=== PATIENT | female | born 1955 | race Caucasian/White ===

== ENCOUNTER 2016-07-29 16:45 | Emergency (ER) | payer OTHER ==
[2016-07-29] MEDS ORDERED: Cyclobenzaprine 10 MG Tab PO ONE (17:35)
[2016-07-29] MEDS ORDERED: Sodium Chloride 0.9% 10 ML Syringe FLUSH PRN (17:35)
[2016-07-29] MEDS ORDERED: HYDROmorphone 0.5 MG/0.5 ML Syringe IVPUSH ONE (17:35)
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
[2016-07-29] MEDS ORDERED: Sodium Chloride 0.9% 1,000 ML IV SCH (17:45)
[2016-07-29] MEDS ORDERED: Sodium Chloride 0.9% 10 ML Syringe FLUSH ONE (18:07)
[2016-07-29] MEDS ORDERED: Iopamidol 612 MG/ML 100 ML Bottle IV SCH (18:15)
[2016-07-29] MEDS ORDERED: Sodium Chloride 0.9% 75 ML IV SCH (18:15)
[2016-07-29 19:17] VITALS: BP 146/68
[2016-07-29] MEDS ORDERED: Ketorolac 30 MG/ML SDV IVPUSH ONE (19:18)
== END 2016-07-29 19:46 | disposition home or self-care (01) ==
LOC: JP.ED 16:45
DX: S20.211A Contusion of right front wall of thorax, initial encounter (principal); E78.00 Pure hypercholesterolemia, unspecified; I10 Essential (primary) hypertension; Z88.5 Allergy status to narcotic agent; Z88.8 Allergy status to other drugs, medicaments and biological substances; Z79.899 Other long term (current) drug therapy; Z90.49 Acquired absence of other specified parts of digestive tract; V89.0XXA Person injured in unspecified motor-vehicle accident, nontraffic, initial encounter
CPT/HCPCS: 36415; 71260; 80053; 85025; 96361; 96374; 96375; 99285; A9270; J1170; J1885; J7030; J7040; J7050; Q9967; 99284